=== PATIENT | male | born 1965 ===

== ENCOUNTER → 2021-10-03 | Outpatient (CLI) | payer MEDICARE ==
[2021-10-03 16:21] LABS: BASOPHIL % 0.3 % (0.0-0.2); EOSINOPHIL # 0.1 10^3/uL (0.0-0.2); EOSINOPHIL % 1.2 % (0.0-5.0); LYMPHOCYTES # 0.53 10^3/uL1 (1.0-4.8); LYMPHOCYTES % 8.9 % (24.0-44.0); MEAN CORP HGB 30.1 pg (26-34); MONOCYTES # 0.3 10^3/uL (0.3-0.8); MONOCYTES % 4.7 % (5.0-12.0); NEUTROPHIL # 5.1 10^3/uL (1.8-7.7); NEUTROPHILS % 84.7 % (41.0-85.0); RED CELL DISTRIBUTION WIDTH 12.5 % (11.5-14.5)
[2021-10-03 16:31] LABS: CARBON DIOXIDE 23.6 mmol/L (20.0-32)
== END | disposition home or self-care (01) ==
LOC: NPLAB 15:50
PROVIDERS: ATTEND Internal Medicine
DX: K52.9 Noninfective gastroenteritis and colitis, unspecified (principal); N17.9 Acute kidney failure, unspecified
CPT/HCPCS: 80048; 80197; 83735; 84100; 85025; 87497

== ENCOUNTER → 2021-11-28 | Outpatient (CLI) | payer MEDICARE ==
[2021-11-28 12:37] LABS: BASOPHIL % 0.3 % (0.0-0.2); EOSINOPHIL % 0.5 % (0.0-5.0); LYMPHOCYTES # 0.31 10^3/uL1 (1.0-4.8); LYMPHOCYTES % 8.3 % (24.0-44.0); MEAN CORP HGB 29.7 pg (26-34); MONOCYTES # 0.1 10^3/uL (0.3-0.8); MONOCYTES % 3.8 % (5.0-12.0); NEUTROPHIL # 3.2 10^3/uL (1.8-7.7); NEUTROPHILS % 86.8 % (41.0-85.0); RED CELL DISTRIBUTION WIDTH 14.3 % (11.5-14.5)
[2021-11-28 13:31] LABS: GLUCOSE 32 mg/dL (70-110)
== END | disposition home or self-care (01) ==
LOC: NPLAB 11:58
PROVIDERS: ATTEND Internal Medicine Nephrology
DX: E11.22 Type 2 diabetes mellitus with diabetic chronic kidney disease (principal); N17.9 Acute kidney failure, unspecified; Z94.0 Kidney transplant status; R39.0 Extravasation of urine; Z79.899 Other long term (current) drug therapy
CPT/HCPCS: 80048; 80076; 80197; 82043; 82570; 83735; 84100; 85025; 87086; 87497

== ENCOUNTER → 2021-12-05 | Outpatient (CLI) | payer MEDICARE ==
[2021-12-05 12:34] LABS: BASOPHIL % 0.5 % (0.0-0.2); EOSINOPHIL % 0.2 % (0.0-5.0); LYMPHOCYTES # 0.23 10^3/uL1 (1.0-4.8); LYMPHOCYTES % 5.5 % (24.0-44.0); MEAN CORP HGB 29.6 pg (26-34); MONOCYTES # 0.2 10^3/uL (0.3-0.8); NEUTROPHIL # 3.7 10^3/uL (1.8-7.7); NEUTROPHILS % 88.6 % (41.0-85.0); PLATELET COUNT 183 10^3/uL (150-400); RED CELL DISTRIBUTION WIDTH 14.7 % (11.5-14.5)
[2021-12-05 13:20] LABS: CARBON DIOXIDE 21.6 mmol/L (20.0-32)
[2021-12-05 15:41] LABS: BAND NEUTROPHILS 1 % (2-6); BASOPHIL 0 % (0-2); EOSINOPHIL 1 % (1-4); LYMPHOCYTE 4 % (25-36); MONOCYTE 4 % (3-9); SEGMENTED NEUTROPHILS 90 % (31-76)
== END | disposition home or self-care (01) ==
LOC: NPLAB 12:08
PROVIDERS: ATTEND Internal Medicine Nephrology
DX: Z87.448 Personal history of other diseases of urinary system (principal); Z94.0 Kidney transplant status
CPT/HCPCS: 36415; 80048; 80197; 83735; 84100; 85025; 87497

== ENCOUNTER → 2022-03-14 | Outpatient (CLI) | payer MEDICARE, MEDICAID ==
[2022-03-14 14:55] LABS: BASOPHIL % 0.8 % (0.0-0.2); EOSINOPHIL % 0.8 % (0.0-5.0); LYMPHOCYTES # 0.18 10^3/uL1 (1.0-4.8); LYMPHOCYTES % 7.1 % (24.0-44.0); MEAN CORP HGB 29.3 pg (26-34); MONOCYTES # 0.3 10^3/uL (0.3-0.8); MONOCYTES % 13.3 % (5.0-12.0); NEUTROPHIL # 1.9 10^3/uL (1.8-7.7); RED CELL DISTRIBUTION WIDTH 15.4 % (11.5-14.5)
[2022-03-14 15:04] LABS: CARBON DIOXIDE 24.7 mmol/L (20.0-32); GLUCOSE 140 mg/dL (70-110)
== END | disposition home or self-care (01) ==
LOC: NPLAB 14:09
PROVIDERS: ATTEND Internal Medicine Nephrology
DX: I12.9 Hypertensive chronic kidney disease with stage 1 through stage 4 chronic kidney disease, or unspecified chronic kidney disease (principal); N18.9 Chronic kidney disease, unspecified; E87.5 Hyperkalemia; N17.9 Acute kidney failure, unspecified
CPT/HCPCS: 36415; 80048; 80076; 83550; 83735; 84100; 85025; 87497

== ENCOUNTER → 2022-05-15 | Outpatient (CLI) | payer MEDICARE, MEDICAID ==
[2022-05-15 12:07] LABS: BASOPHIL % 0.7 % (0.0-0.2); EOSINOPHIL # 0.1 10^3/uL (0.0-0.2); EOSINOPHIL % 1.5 % (0.0-5.0); LYMPHOCYTES # 0.29 10^3/uL1 (1.0-4.8); LYMPHOCYTES % 7.1 % (24.0-44.0); MEAN CORP HGB 27.2 pg (26-34); MONOCYTES # 0.3 10^3/uL (0.3-0.8); MONOCYTES % 6.2 % (5.0-12.0); NEUTROPHIL # 3.4 10^3/uL (1.8-7.7); NEUTROPHILS % 84.3 % (41.0-85.0); PLATELET COUNT 128 10^3/uL (150-400)
[2022-05-15 12:13] LABS: CARBON DIOXIDE 27.7 mmol/L (20.0-32)
[2022-05-15 14:36] LABS: EOSINOPHIL 1 % (1-4); LYMPHOCYTE 11 % (25-36); MONOCYTE 3 % (3-9); SEGMENTED NEUTROPHILS 85 % (31-76)
== END | disposition home or self-care (01) ==
LOC: NPLAB 11:20
PROVIDERS: ATTEND Internal Medicine Critical Care Medicine
DX: I12.9 Hypertensive chronic kidney disease with stage 1 through stage 4 chronic kidney disease, or unspecified chronic kidney disease (principal); N17.9 Acute kidney failure, unspecified; E87.5 Hyperkalemia; D64.9 Anemia, unspecified; Z94.0 Kidney transplant status; Z84.0 Family history of diseases of the skin and subcutaneous tissue
CPT/HCPCS: 36415; 80048; 83735; 84100; 85025

== ENCOUNTER → 2022-06-19 | Outpatient (CLI) | payer MEDICARE, MEDICAID ==
[2022-06-19 13:15] LABS: BILIRUBIN,URINE NEGATIVE (NEGATIVE); UROBILINOGEN,URINE 0.2 E.U./dL (0.2)
[2022-06-19 13:29] LABS: CARBON DIOXIDE 24.4 mmol/L (20.0-32); GLUCOSE 127 mg/dL (70-110)
[2022-06-19 13:37] LABS: BASOPHIL % 0.4 % (0.0-0.2); EOSINOPHIL # 0.1 10^3/uL (0.0-0.2); EOSINOPHIL % 1.5 % (0.0-5.0); LYMPHOCYTES # 0.36 10^3/uL1 (1.0-4.8); LYMPHOCYTES % 7.5 % (24.0-44.0); MEAN CORP HGB 26.8 pg (26-34); MONOCYTES # 0.3 10^3/uL (0.3-0.8); MONOCYTES % 6.5 % (5.0-12.0); NEUTROPHILS % 83.5 % (41.0-85.0); PLATELET COUNT 116 10^3/uL (150-400); RED CELL DISTRIBUTION WIDTH 15.5 % (11.5-14.5)
[2022-06-19 18:38] LABS: ANISOCYTOSIS 1+ (NEGATIVE)
== END | disposition home or self-care (01) ==
LOC: NPLAB 12:48
PROVIDERS: ATTEND Internal Medicine Nephrology
DX: I12.9 Hypertensive chronic kidney disease with stage 1 through stage 4 chronic kidney disease, or unspecified chronic kidney disease (principal); E11.621 Type 2 diabetes mellitus with foot ulcer; Z94.0 Kidney transplant status; Z79.899 Other long term (current) drug therapy
CPT/HCPCS: 36415; 80048; 80076; 81001; 82570; 83735; 84100; 84156; 85025; 87086; 87497

== ENCOUNTER → 2022-07-03 | Outpatient (CLI) | payer MEDICARE, MEDICAID ==
[2022-07-03 11:54] LABS: BASOPHIL % 0.2 % (0.0-0.2); EOSINOPHIL # 0.1 10^3/uL (0.0-0.2); EOSINOPHIL % 1.4 % (0.0-5.0); LYMPHOCYTES # 0.26 10^3/uL1 (1.0-4.8); LYMPHOCYTES % 6.1 % (24.0-44.0); MEAN CORP HGB 27.3 pg (26-34); MONOCYTES # 0.3 10^3/uL (0.3-0.8); MONOCYTES % 6.4 % (5.0-12.0); NEUTROPHIL # 3.6 10^3/uL (1.8-7.7); NEUTROPHILS % 85.4 % (41.0-85.0); PLATELET COUNT 129 10^3/uL (150-400); RED CELL DISTRIBUTION WIDTH 15.5 % (11.5-14.5)
[2022-07-03 12:03] LABS: CARBON DIOXIDE 32.9 mmol/L (20.0-32)
== END | disposition home or self-care (01) ==
LOC: NPLAB 11:20
PROVIDERS: ATTEND Internal Medicine Nephrology
DX: Z94.0 Kidney transplant status (principal)
CPT/HCPCS: 36415; 80048; 83735; 84100; 85025

== ENCOUNTER → 2022-07-10 | Outpatient (CLI) | payer MEDICARE, MEDICAID ==
[2022-07-10 10:18] LABS: BASOPHIL % 0.2 % (0.0-0.2); EOSINOPHIL # 0.1 10^3/uL (0.0-0.2); EOSINOPHIL % 1.4 % (0.0-5.0); LYMPHOCYTES # 0.26 10^3/uL1 (1.0-4.8); LYMPHOCYTES % 5.4 % (24.0-44.0); MEAN CORP HGB 27.2 pg (26-34); MONOCYTES # 0.3 10^3/uL (0.3-0.8); NEUTROPHIL # 4.2 10^3/uL (1.8-7.7); PLATELET COUNT 127 10^3/uL (150-400); RED CELL DISTRIBUTION WIDTH 15.4 % (11.5-14.5)
[2022-07-10 10:26] LABS: CARBON DIOXIDE 28.1 mmol/L (20.0-32)
== END | disposition home or self-care (01) ==
LOC: NPLAB 09:45
PROVIDERS: ATTEND Internal Medicine Nephrology
DX: R82.90 Unspecified abnormal findings in urine (principal); Z94.0 Kidney transplant status
CPT/HCPCS: 36415; 80048; 83735; 84100; 85025

== ENCOUNTER → 2022-08-07 | Outpatient (CLI) | payer MEDICARE, MEDICAID ==
[2022-08-07 12:11] LABS: BASOPHIL % 0.2 % (0.0-0.2); EOSINOPHIL # 0.1 10^3/uL (0.0-0.2); EOSINOPHIL % 1.2 % (0.0-5.0); LYMPHOCYTES # 0.21 10^3/uL1 (1.0-4.8); LYMPHOCYTES % 4.8 % (24.0-44.0); MONOCYTES # 0.3 10^3/uL (0.3-0.8); NEUTROPHIL # 3.8 10^3/uL (1.8-7.7); NEUTROPHILS % 86.4 % (41.0-85.0); PLATELET COUNT 121 10^3/uL (150-400); RED CELL DISTRIBUTION WIDTH 15.2 % (11.5-14.5)
[2022-08-07 12:21] LABS: CARBON DIOXIDE 28.2 mmol/L (20.0-32)
== END | disposition home or self-care (01) ==
LOC: NPLAB 10:48
PROVIDERS: ATTEND Internal Medicine Nephrology
DX: D50.9 Iron deficiency anemia, unspecified (principal); Z94.0 Kidney transplant status
CPT/HCPCS: 36415; 80048; 83735; 84100; 85025

== ENCOUNTER → 2023-01-29 | Outpatient (CLI) | payer MEDICARE, MEDICAID ==
[2023-01-29 11:37] LABS: BASOPHIL % 0.4 % (0.0-0.2); EOSINOPHIL % 0.8 % (0.0-5.0); HEMATOCRIT(ML) 31.7 % (37.0-53.0); HEMOGLOBIN 9.7 g/dL (13.9-16.3); LYMPHOCYTES % 3.9 % (24.0-44.0); MEAN CORP HGB CONCENTRATION 30.6 g/dL (33-36.5); MEAN CORP VOLUME 91.6 fL (78-100); MONOCYTES # 0.3 10^3/uL (0.3-0.8); MONOCYTES % 6.5 % (5.0-12.0); PLATELET COUNT 164 10^3/uL (150-400); RED BLOOD CELL 3.46 10^6/uL (4.50-5.90); RED CELL DISTRIBUTION WIDTH 16.4 % (11.5-14.5); WHITE BLOOD CELL 5.1 10^3/uL (4.5-11.0)
[2023-01-29 11:40] LABS: BILIRUBIN,URINE NEGATIVE (NEGATIVE); LEUKOCYTE ESTERASE ,URINE NEGATIVE (NEGATIVE); NITRATE,URINE NEGATIVE (NEGATIVE); PH,URINE 7.5 (4.5-8.0); UROBILINOGEN,URINE 0.2 E.U./dL (0.2)
[2023-01-29 11:47] LABS: APPEARANCE,URINE CLEAR; UA COLOR STRAW
[2023-01-29 11:51] LABS: +ADD MANUAL DIFF(NO CHRG) YES; ANION GAP 14.8; BUN/CREATININE RATIO 14.56 (10.0-20.0); CARBON DIOXIDE 32.8 mmol/L (20.0-32); CREATININE SERUM 4.6 mg/dL (0.59-1.40); POTASSIUM 4.6 mmol/L (3.6-5.2)
[2023-01-29 11:52] LABS: ALBUMIN(ML) 4.1 g/dL (3.4-5.0); BILIRUBIN,DIRECT 0.1 mg/dL (0.0-0.3); BILIRUBIN,INDIRECT 0.3 mg/dL; CALCIUM 10.3 mg/dL (8.4-10.5); EST GFR, NON-AA 13.3 (>/=60)
[2023-01-29 11:55] LABS: URINE PROTEIN(ML) 34.4 mg/dL (0-20)
[2023-01-29 12:12] LABS: SEGMENTED NEUTROPHILS 77 % (31-76); TOTAL CELLS COUNTED 100 #CELLS
[2023-01-29 12:13] LABS: BAND NEUTROPHILS 3 % (2-6); EOSINOPHIL 2 % (1-4); LYMPHOCYTE 7 % (25-36); MONOCYTE 6 % (3-9); OTHER CELL TYPE 1
[2023-01-29 12:14] LABS: ANISOCYTOSIS 1+ (NEGATIVE); DIFFERENTIAL COMMENT NORMAL; POIKILOCYTOSIS 1+ (NEGATIVE)
[2023-01-29 12:16] LABS: STOMATOCYTES 1+ (NEGATIVE)
== END | disposition home or self-care (01) ==
LOC: NPLAB 10:54
PROVIDERS: ATTEND Internal Medicine Nephrology
DX: I12.9 Hypertensive chronic kidney disease with stage 1 through stage 4 chronic kidney disease, or unspecified chronic kidney disease (principal); E87.5 Hyperkalemia; Z94.0 Kidney transplant status
CPT/HCPCS: 36415; 80048; 80076; 81001; 82043; 82570; 83735; 84100; 84156; 85025; 87497

== ENCOUNTER → 2023-02-19 | Outpatient (CLI) | payer MEDICARE, MEDICAID ==
[2023-02-19 10:20] LABS: BASOPHIL % 0.3 % (0.0-0.2); EOSINOPHIL % 0.9 % (0.0-5.0); HEMATOCRIT(ML) 27.8 % (37.0-53.0); HEMOGLOBIN 8.8 g/dL (13.9-16.3); LYMPHOCYTES # 0.16 10^3/uL1 (1.0-4.8); LYMPHOCYTES % 4.8 % (24.0-44.0); MEAN CORP HGB CONCENTRATION 31.7 g/dL (33-36.5); MEAN CORP VOLUME 91.7 fL (78-100); MONOCYTES # 0.2 10^3/uL (0.3-0.8); MONOCYTES % 6.6 % (5.0-12.0); NEUTROPHIL # 2.6 10^3/uL (1.8-7.7); NEUTROPHILS % 79.3 % (41.0-85.0); PLATELET COUNT 142 10^3/uL (150-400); RED BLOOD CELL 3.03 10^6/uL (4.50-5.90); RED CELL DISTRIBUTION WIDTH 15.5 % (11.5-14.5); WHITE BLOOD CELL 3.3 10^3/uL (4.5-11.0)
[2023-02-19 10:29] LABS: +ADD MANUAL DIFF(NO CHRG) YES
[2023-02-19 10:40] LABS: URINE PROTEIN(ML) 36.2 mg/dL (0-20)
[2023-02-19 11:13] LABS: BAND NEUTROPHILS 1 % (2-6); DIFFERENTIAL COMMENT NORMAL; HYPOCHROMIA 1+ (NEGATIVE); LYMPHOCYTE 5 % (25-36); MONOCYTE 6 % (3-9); SEGMENTED NEUTROPHILS 88 % (31-76); TOTAL CELLS COUNTED 100 #CELLS
[2023-02-19 11:14] LABS: ANISOCYTOSIS 1+ (NEGATIVE); POIKILOCYTOSIS 1+ (NEGATIVE)
[2023-02-19 12:42] LABS: ANION GAP 12.9; BILIRUBIN,DIRECT 0.1 mg/dL (0.0-0.3); BILIRUBIN,INDIRECT 0.3 mg/dL; BUN/CREATININE RATIO 14.17 (10.0-20.0); CALCIUM 9.3 mg/dL (8.4-10.5); CARBON DIOXIDE 32.1 mmol/L (20.0-32); LDL/HDL RATIO 1.3
[2023-02-19 12:48] LABS: CREATININE SERUM 5.01 mg/dL (0.59-1.40)
== END | disposition home or self-care (01) ==
LOC: NPLAB 09:51
PROVIDERS: ATTEND Internal Medicine Nephrology
DX: Z94.0 Kidney transplant status (principal); Z79.899 Other long term (current) drug therapy; R82.90 Unspecified abnormal findings in urine
CPT/HCPCS: 36415; 80048; 80061; 80076; 82043; 82306; 82570; 83735; 83970; 84100; 84156; 85025; 87086

== ENCOUNTER → 2023-03-26 | Outpatient (CLI) | payer MEDICARE, MEDICAID ==
[2023-03-26 10:40] LABS: BASOPHIL % 0.4 % (0.0-0.2); EOSINOPHIL % 1.1 % (0.0-5.0); HEMATOCRIT(ML) 30.7 % (37.0-53.0); HEMOGLOBIN 9.5 g/dL (13.9-16.3); LYMPHOCYTES # 0.16 10^3/uL1 (1.0-4.8); LYMPHOCYTES % 5.9 % (24.0-44.0); MEAN CORP HGB CONCENTRATION 30.9 g/dL (33-36.5); MEAN CORP VOLUME 90.6 fL (78-100); MONOCYTES # 0.3 10^3/uL (0.3-0.8); MONOCYTES % 9.9 % (5.0-12.0); NEUTROPHIL # 2.1 10^3/uL (1.8-7.7); NEUTROPHILS % 77.2 % (41.0-85.0); PLATELET COUNT 164 10^3/uL (150-400); RED BLOOD CELL 3.39 10^6/uL (4.50-5.90); RED CELL DISTRIBUTION WIDTH 13.9 % (11.5-14.5); WHITE BLOOD CELL 2.7 10^3/uL (4.5-11.0)
[2023-03-26 10:50] LABS: +ADD MANUAL DIFF(NO CHRG) YES
[2023-03-26 10:56] LABS: URINE PROTEIN(ML) 23.9 mg/dL (0-20)
[2023-03-26 11:10] LABS: ALBUMIN(ML) 3.9 g/dL (3.4-5.0); ANION GAP 12.6; BILIRUBIN,DIRECT 0.1 mg/dL (0.0-0.3); BILIRUBIN,INDIRECT 0.3 mg/dL; BUN/CREATININE RATIO 13.62 (10.0-20.0); CALCIUM 10.2 mg/dL (8.4-10.5); CARBON DIOXIDE 32.3 mmol/L (20.0-32); EST GFR, NON-AA 11.5 (>/=60); LDL/HDL RATIO 1.7; POTASSIUM 4.9 mmol/L (3.6-5.2)
[2023-03-26 11:18] LABS: CREATININE SERUM 5.21 mg/dL (0.59-1.40)
[2023-03-26 11:25] LABS: BAND NEUTROPHILS 8 % (2-6); EOSINOPHIL 2 % (1-4); LYMPHOCYTE 12 % (25-36); MONOCYTE 4 % (3-9); SEGMENTED NEUTROPHILS 74 % (31-76); TOTAL CELLS COUNTED 100 #CELLS
== END | disposition home or self-care (01) ==
LOC: NPLAB 09:55
PROVIDERS: ATTEND Internal Medicine Nephrology
DX: E11.22 Type 2 diabetes mellitus with diabetic chronic kidney disease (principal); E55.9 Vitamin D deficiency, unspecified; Z94.0 Kidney transplant status; Z92.25 Personal history of immunosuppression therapy
CPT/HCPCS: 36415; 80048; 80061; 80076; 82043; 82306; 82570; 83735; 83970; 84100; 84156; 85025; 87799

== ENCOUNTER → 2023-04-25 | Outpatient (CLI) | payer MEDICARE, MEDICAID ==
[2023-04-25 15:58] LABS: BASOPHIL % 0.4 % (0.0-0.2); EOSINOPHIL # 0.1 10^3/uL (0.0-0.2); EOSINOPHIL % 2.3 % (0.0-5.0); HEMATOCRIT(ML) 32.2 % (37.0-53.0); HEMOGLOBIN 9.8 g/dL (13.9-16.3); LYMPHOCYTES # 0.22 10^3/uL1 (1.0-4.8); LYMPHOCYTES % 8.4 % (24.0-44.0); MEAN CORP HGB 28.1 pg (26-34); MEAN CORP HGB CONCENTRATION 30.4 g/dL (33-36.5); MEAN CORP VOLUME 92.3 fL (78-100); MONOCYTES # 0.2 10^3/uL (0.3-0.8); MONOCYTES % 8.8 % (5.0-12.0); NEUTROPHILS % 74.7 % (41.0-85.0); PLATELET COUNT 174 10^3/uL (150-400); RED BLOOD CELL 3.49 10^6/uL (4.50-5.90); RED CELL DISTRIBUTION WIDTH 15.6 % (11.5-14.5); WHITE BLOOD CELL 2.6 10^3/uL (4.5-11.0)
[2023-04-25 15:59] LABS: BILIRUBIN,URINE NEGATIVE (NEGATIVE); LEUKOCYTE ESTERASE ,URINE NEGATIVE (NEGATIVE); NITRATE,URINE NEGATIVE (NEGATIVE); UROBILINOGEN,URINE 0.2 E.U./dL (0.2)
[2023-04-25 16:02] LABS: +ADD MANUAL DIFF(NO CHRG) YES
[2023-04-25 16:07] LABS: APPEARANCE,URINE CLEAR; UA COLOR YELLOW
[2023-04-25 16:09] LABS: URINE PROTEIN(ML) 42.7 mg/dL (0-20)
[2023-04-25 16:29] LABS: BAND NEUTROPHILS 1 % (2-6); BASOPHIL 1 % (0-2); EOSINOPHIL 1 % (1-4); LYMPHOCYTE 16 % (25-36); MONOCYTE 4 % (3-9); SEGMENTED NEUTROPHILS 77 % (31-76); TOTAL CELLS COUNTED 100 #CELLS
[2023-04-25 17:08] LABS: BUN/CREATININE RATIO 18.5 (10.0-20.0); CARBON DIOXIDE 30.3 mmol/L (20.0-32); EST GFR, NON-AA 11.2 (>/=60)
[2023-04-25 17:17] LABS: POTASSIUM 4.8 mmol/L (3.6-5.2)
[2023-04-25 17:21] LABS: ANION GAP 14.5
[2023-04-25 17:22] LABS: ALBUMIN(ML) 3.7 g/dL (3.4-5.0); CALCIUM 9.5 mg/dL (8.4-10.5)
[2023-04-25 17:23] LABS: BILIRUBIN,DIRECT 0.1 mg/dL (0.0-0.3); BILIRUBIN,INDIRECT 0.2 mg/dL; LDL/HDL RATIO 1.3
[2023-04-25 17:49] LABS: CREATININE SERUM 5.35 mg/dL (0.59-1.40)
[2023-04-29 09:13] LABS: BK VIRUS QUANT PCR Negative (Negative)
== END | disposition home or self-care (01) ==
LOC: NPLAB 15:12
PROVIDERS: ATTEND Internal Medicine Nephrology
DX: Z94.0 Kidney transplant status (principal); Z79.899 Other long term (current) drug therapy
CPT/HCPCS: 36415; 80048; 80061; 80076; 81001; 82043; 82306; 82570; 83735; 83970; 84100; 84156; 85025; 87086; 87799

== ENCOUNTER → 2023-05-07 | Outpatient (CLI) | payer MEDICARE, MEDICAID ==
[2023-05-07 13:17] LABS: BASOPHIL % 0.3 % (0.0-0.2); EOSINOPHIL # 0.1 10^3/uL (0.0-0.2); EOSINOPHIL % 1.6 % (0.0-5.0); HEMATOCRIT(ML) 29.7 % (37.0-53.0); HEMOGLOBIN 9.3 g/dL (13.9-16.3); LYMPHOCYTES # 0.23 10^3/uL1 (1.0-4.8); LYMPHOCYTES % 6.3 % (24.0-44.0); MEAN CORP HGB 28.4 pg (26-34); MEAN CORP HGB CONCENTRATION 31.3 g/dL (33-36.5); MEAN CORP VOLUME 90.5 fL (78-100); MONOCYTES # 0.3 10^3/uL (0.3-0.8); MONOCYTES % 7.3 % (5.0-12.0); NEUTROPHIL # 3.1 10^3/uL (1.8-7.7); NEUTROPHILS % 82.9 % (41.0-85.0); PLATELET COUNT 159 10^3/uL (150-400); RED BLOOD CELL 3.28 10^6/uL (4.50-5.90); RED CELL DISTRIBUTION WIDTH 14.8 % (11.5-14.5); WHITE BLOOD CELL 3.7 10^3/uL (4.5-11.0)
[2023-05-07 13:29] LABS: +ADD MANUAL DIFF(NO CHRG) NO
[2023-05-07 13:31] LABS: ANION GAP 14.7; BUN/CREATININE RATIO 18.73 (10.0-20.0); CALCIUM 9.8 mg/dL (8.4-10.5); CARBON DIOXIDE 30.6 mmol/L (20.0-32); CREATININE SERUM 4.91 mg/dL (0.59-1.40); EST GFR, NON-AA 12.3 (>/=60); POTASSIUM 5.3 mmol/L (3.6-5.2)
== END | disposition home or self-care (01) ==
LOC: NPLAB 13:06
PROVIDERS: ATTEND Internal Medicine Nephrology
DX: Z94.0 Kidney transplant status (principal)
CPT/HCPCS: 36415; 80048; 83735; 84100; 85025; 87497

== ENCOUNTER → 2023-05-21 | Outpatient (CLI) | payer MEDICARE, MEDICAID ==
[2023-05-21 13:10] LABS: BASOPHIL % 0.5 % (0.0-0.2); HEMATOCRIT(ML) 34.1 % (37.0-53.0); HEMOGLOBIN 10.4 g/dL (13.9-16.3); LYMPHOCYTES # 0.22 10^3/uL1 (1.0-4.8); LYMPHOCYTES % 5.4 % (24.0-44.0); MEAN CORP HGB CONCENTRATION 30.5 g/dL (33-36.5); MEAN CORP VOLUME 91.7 fL (78-100); MONOCYTES # 0.5 10^3/uL (0.3-0.8); MONOCYTES % 12.6 % (5.0-12.0); NEUTROPHIL # 2.9 10^3/uL (1.8-7.7); NEUTROPHILS % 72.4 % (41.0-85.0); PLATELET COUNT 179 10^3/uL (150-400); RED BLOOD CELL 3.72 10^6/uL (4.50-5.90); RED CELL DISTRIBUTION WIDTH 15.3 % (11.5-14.5); WHITE BLOOD CELL 4.1 10^3/uL (4.5-11.0)
[2023-05-21 13:12] LABS: +ADD MANUAL DIFF(NO CHRG) YES
[2023-05-21 13:25] LABS: ANION GAP 15.1; BUN/CREATININE RATIO 14.74 (10.0-20.0); CALCIUM 10.3 mg/dL (8.4-10.5); CARBON DIOXIDE 32.2 mmol/L (20.0-32); POTASSIUM 5.3 mmol/L (3.6-5.2)
[2023-05-21 13:29] LABS: CREATININE SERUM 5.02 mg/dL (0.59-1.40)
[2023-05-21 13:59] LABS: BAND NEUTROPHILS 10 % (2-6); EOSINOPHIL 2 % (1-4); LYMPHOCYTE 4 % (25-36); MONOCYTE 12 % (3-9); OVALOCYTES 1+ (NEGATIVE); POIKILOCYTOSIS 1+ (NEGATIVE); SEGMENTED NEUTROPHILS 71 % (31-76); TOTAL CELLS COUNTED 100 #CELLS; TOXIC GRANULATION 1+ (NEGATIVE)
== END | disposition home or self-care (01) ==
LOC: NPLAB 12:56
PROVIDERS: ATTEND Internal Medicine Nephrology
DX: Z94.0 Kidney transplant status (principal)
CPT/HCPCS: 36415; 80048; 83735; 84100; 85025; 87497

== ENCOUNTER → 2023-06-04 | Outpatient (CLI) | payer MEDICARE, MEDICAID ==
[2023-06-04 10:24] LABS: BASOPHIL % 0.6 % (0.0-0.2); EOSINOPHIL # 0.1 10^3/uL (0.0-0.2); EOSINOPHIL % 1.4 % (0.0-5.0); HEMATOCRIT(ML) 32.8 % (37.0-53.0); HEMOGLOBIN 9.9 g/dL (13.9-16.3); LYMPHOCYTES % 5.8 % (24.0-44.0); MEAN CORP HGB 27.4 pg (26-34); MEAN CORP HGB CONCENTRATION 30.2 g/dL (33-36.5); MEAN CORP VOLUME 90.9 fL (78-100); MONOCYTES # 0.2 10^3/uL (0.3-0.8); MONOCYTES % 5.8 % (5.0-12.0); NEUTROPHIL # 2.7 10^3/uL (1.8-7.7); NEUTROPHILS % 78.9 % (41.0-85.0); PLATELET COUNT 185 10^3/uL (150-400); RED BLOOD CELL 3.61 10^6/uL (4.50-5.90); RED CELL DISTRIBUTION WIDTH 14.6 % (11.5-14.5); WHITE BLOOD CELL 3.5 10^3/uL (4.5-11.0)
[2023-06-04 10:36] LABS: +ADD MANUAL DIFF(NO CHRG) YES
[2023-06-04 10:47] LABS: ANION GAP 11.4; BUN/CREATININE RATIO 15.63 (10.0-20.0); CALCIUM 9.7 mg/dL (8.4-10.5); CARBON DIOXIDE 31.4 mmol/L (20.0-32); CREATININE SERUM 4.99 mg/dL (0.59-1.40); EST GFR, NON-AA 12.1 (>/=60); POTASSIUM 4.8 mmol/L (3.6-5.2)
[2023-06-04 11:10] LABS: DIFFERENTIAL COMMENT NORMAL; EOSINOPHIL 2 % (1-4); LYMPHOCYTE 7 % (25-36); MONOCYTE 7 % (3-9); OTHER CELL TYPE 1; SEGMENTED NEUTROPHILS 81 % (31-76); TOTAL CELLS COUNTED 100 #CELLS
== END | disposition home or self-care (01) ==
LOC: NPLAB 09:18
PROVIDERS: ATTEND Internal Medicine Nephrology
DX: Z94.0 Kidney transplant status (principal)
CPT/HCPCS: 36415; 80048; 83735; 84100; 85025; 87497

== ENCOUNTER → 2023-08-13 | Outpatient (CLI) | payer MEDICARE, MEDICAID ==
[2023-08-13 13:07] LABS: BILIRUBIN,URINE NEGATIVE (NEGATIVE); LEUKOCYTE ESTERASE ,URINE NEGATIVE (NEGATIVE); NITRATE,URINE NEGATIVE (NEGATIVE); PH,URINE 7.5 (4.5-8.0); UROBILINOGEN,URINE 0.2 E.U./dL (0.2)
[2023-08-13 13:08] LABS: BASOPHIL % 0.3 % (0.0-0.2); EOSINOPHIL % 0.9 % (0.0-5.0); HEMATOCRIT(ML) 27.7 % (37.0-53.0); HEMOGLOBIN 8.5 g/dL (13.9-16.3); LYMPHOCYTES # 0.16 10^3/uL1 (1.0-4.8); LYMPHOCYTES % 4.8 % (24.0-44.0); MEAN CORP HGB 27.5 pg (26-34); MEAN CORP HGB CONCENTRATION 30.7 g/dL (33-36.5); MEAN CORP VOLUME 89.6 fL (78-100); MONOCYTES # 0.3 10^3/uL (0.3-0.8); MONOCYTES % 8.9 % (5.0-12.0); NEUTROPHIL # 2.6 10^3/uL (1.8-7.7); NEUTROPHILS % 75.9 % (41.0-85.0); PLATELET COUNT 158 10^3/uL (150-400); RED BLOOD CELL 3.09 10^6/uL (4.50-5.90); RED CELL DISTRIBUTION WIDTH 14.4 % (11.5-14.5); WHITE BLOOD CELL 3.4 10^3/uL (4.5-11.0)
[2023-08-13 13:11] LABS: +ADD MANUAL DIFF(NO CHRG) YES
[2023-08-13 13:14] LABS: APPEARANCE,URINE CLEAR; UA COLOR YELLOW
[2023-08-13 13:20] LABS: ALBUMIN(ML) 2.6 g/dL (3.4-5.0); ALBUMIN/GLOBULIN RATIO 0.634; ANION GAP 17.5; BUN/CREATININE RATIO 16.3 (10.0-20.0); CALCIUM 9.4 mg/dL (8.4-10.5); CARBON DIOXIDE 29.8 mmol/L (20.0-32); EST GFR, NON-AA 9.9 (>/=60); POTASSIUM 4.3 mmol/L (3.6-5.2)
[2023-08-13 13:28] LABS: CREATININE SERUM 5.95 mg/dL (0.59-1.40)
[2023-08-13 14:14] LABS: BAND NEUTROPHILS 5 % (2-6); EOSINOPHIL 2 % (1-4); LYMPHOCYTE 8 % (25-36); MONOCYTE 4 % (3-9); SEGMENTED NEUTROPHILS 81 % (31-76); TOTAL CELLS COUNTED 100 #CELLS
== END | disposition home or self-care (01) ==
LOC: NPLAB 12:39
PROVIDERS: ATTEND Internal Medicine Infectious Disease
DX: I12.0 Hypertensive chronic kidney disease with stage 5 chronic kidney disease or end stage renal disease (principal); N18.5 Chronic kidney disease, stage 5; E87.70 Fluid overload, unspecified
CPT/HCPCS: 36415; 80053; 81001; 83735; 83970; 84100; 85025

== ENCOUNTER → 2023-08-28 | Outpatient (CLI) | payer MEDICARE, MEDICAID ==
[2023-08-28 10:52] LABS: BASOPHIL % 0.3 % (0.0-0.2); EOSINOPHIL % 1.1 % (0.0-5.0); HEMOGLOBIN 8.6 g/dL (13.9-16.3); LYMPHOCYTES # 0.15 10^3/uL1 (1.0-4.8); LYMPHOCYTES % 4.2 % (24.0-44.0); MEAN CORP HGB 27.7 pg (26-34); MEAN CORP HGB CONCENTRATION 30.7 g/dL (33-36.5); MONOCYTES # 0.2 10^3/uL (0.3-0.8); MONOCYTES % 5.1 % (5.0-12.0); NEUTROPHIL # 2.9 10^3/uL (1.8-7.7); NEUTROPHILS % 82.5 % (41.0-85.0); PLATELET COUNT 173 10^3/uL (150-400); RED BLOOD CELL 3.11 10^6/uL (4.50-5.90); WHITE BLOOD CELL 3.5 10^3/uL (4.5-11.0)
[2023-08-28 10:54] LABS: BILIRUBIN,URINE NEGATIVE (NEGATIVE); LEUKOCYTE ESTERASE ,URINE NEGATIVE (NEGATIVE); NITRATE,URINE NEGATIVE (NEGATIVE); UROBILINOGEN,URINE 0.2 E.U./dL (0.2)
[2023-08-28 11:00] LABS: +ADD MANUAL DIFF(NO CHRG) YES
[2023-08-28 11:01] LABS: APPEARANCE,URINE CLEAR; UA COLOR YELLOW
[2023-08-28 11:30] LABS: ALBUMIN(ML) 4.2 g/dL (3.4-5.0); ALBUMIN/GLOBULIN RATIO 1.555; ANION GAP 13.7; BUN/CREATININE RATIO 19.27 (10.0-20.0); CALCIUM 9.9 mg/dL (8.4-10.5); CARBON DIOXIDE 33.1 mmol/L (20.0-32); EST GFR, NON-AA 10.8 (>/=60); POTASSIUM 4.8 mmol/L (3.6-5.2)
[2023-08-28 11:31] LABS: CREATININE SERUM 5.5 mg/dL (0.59-1.40)
[2023-08-28 12:50] LABS: BAND NEUTROPHILS 3 % (2-6); EOSINOPHIL 0 % (1-4); LYMPHOCYTE 3 % (25-36); MONOCYTE 4 % (3-9); SEGMENTED NEUTROPHILS 88 % (31-76); TOTAL CELLS COUNTED 100 #CELLS
[2023-08-28 12:51] LABS: BASOPHIL 0 % (0-2); HYPOCHROMIA 1+ (NEGATIVE); MICROCYTOSIS 1+ (NEGATIVE); NUCLEATED RED BLOOD CELLS 0 % (0-0); OVALOCYTES 1+ (NEGATIVE); SCHISTOCYTES 1+ (NEGATIVE)
[2023-08-28 12:52] LABS: OTHER CELL TYPE 2
== END | disposition home or self-care (01) ==
LOC: NPLAB 10:32
PROVIDERS: ATTEND Internal Medicine Infectious Disease
DX: I12.9 Hypertensive chronic kidney disease with stage 1 through stage 4 chronic kidney disease, or unspecified chronic kidney disease (principal); N18.4 Chronic kidney disease, stage 4 (severe); N17.9 Acute kidney failure, unspecified; Z94.0 Kidney transplant status
CPT/HCPCS: 36415; 80053; 81001; 83735; 83970; 84100; 85025

== ENCOUNTER → 2023-10-25 | Outpatient (CLI) | payer MEDICARE, MEDICAID ==
[2023-10-25 11:41] LABS: BASOPHIL % 0.5 % (0.2-1.2); EOSINOPHIL # 0.1 10^3/uL (0.0-0.2); EOSINOPHIL % 1.8 % (0.0-5.0); HEMATOCRIT(ML) 31.8 % (37.0-53.0); LYMPHOCYTES % 5.2 % (24.0-44.0); MEAN CORP HGB 27.9 pg (26-34); MEAN CORP HGB CONCENTRATION 31.4 g/dL (33-36.5); MEAN CORP VOLUME 88.6 fL (78-100); MONOCYTES # 0.3 10^3/uL (0.3-0.8); MONOCYTES % 7.6 % (5.0-12.0); NEUTROPHIL # 3.1 10^3/uL (1.8-7.7); NEUTROPHILS % 80.7 % (41.0-85.0); PLATELET COUNT 167 10^3/uL (150-400); RED BLOOD CELL 3.59 10^6/uL (4.50-5.90); RED CELL DISTRIBUTION WIDTH 14.9 % (11.5-14.5); WHITE BLOOD CELL 3.8 10^3/uL (4.5-11.0)
[2023-10-25 11:42] LABS: +ADD MANUAL DIFF(NO CHRG) NO
[2023-10-25 11:44] LABS: ALBUMIN(ML) 4.1 g/dL (3.4-5.0); ALBUMIN/GLOBULIN RATIO 1.518; ANION GAP 17.4; BUN/CREATININE RATIO 19.05 (10.0-20.0); CALCIUM 9.1 mg/dL (8.4-10.5); CREATININE SERUM 4.46 mg/dL (0.59-1.40); EST GFR, NON-AA 13.7 (>/=60); POTASSIUM 4.4 mmol/L (3.6-5.2)
[2023-10-25 12:44] LABS: BILIRUBIN,URINE NEGATIVE (NEGATIVE); LEUKOCYTE ESTERASE ,URINE NEGATIVE (NEGATIVE); NITRATE,URINE NEGATIVE (NEGATIVE); UROBILINOGEN,URINE 0.2 E.U./dL (0.2)
[2023-10-25 13:03] LABS: APPEARANCE,URINE CLEAR; UA COLOR YELLOW
== END | disposition home or self-care (01) ==
LOC: NPLAB 10:05
PROVIDERS: ATTEND Internal Medicine Infectious Disease
DX: I12.9 Hypertensive chronic kidney disease with stage 1 through stage 4 chronic kidney disease, or unspecified chronic kidney disease (principal); N18.4 Chronic kidney disease, stage 4 (severe); E78.70 Disorder of bile acid and cholesterol metabolism, unspecified; E87.70 Fluid overload, unspecified; R82.90 Unspecified abnormal findings in urine
CPT/HCPCS: 36415; 80053; 81001; 83735; 83970; 84100; 85025; 87086